=== PATIENT | male | born 1950 | race Caucasian/White ===

== ENCOUNTER 2024-02-07 10:09 | Emergency (ER) | payer OTHER, SELFPAY ==
[2024-02-07 10:15] VITALS: BP 122/102
--- NOTE | 2024-02-07 12:25 | ED.GENMED ---
History of Present Illness
General
Chief Complaint: Cold/Flu/URI Symptoms
Source: patient
Exam Limitations: none
Time Seen by Provider: 02/07/24 12:07
Nursing documentation reviewed up to this point in time: agreed with
History of Present Illness
History of Present Illness:
Patient is a 73-year-old male who presents to the ER with cough for the past 5 to 6 days however cough has worsened over the past 2 days. He has had chills and subjective fevers however has not taken his temperature. is not sick. He denies
any nausea vomiting. He denies shortness of breath.
Past History
Past History
ED Past Medical History: HTN and Other (migraines)
Social History
Living: with family
Review of Systems
Review of Systems
Allergies reviewed?: Yes
Other source history: family
All Other Systems: ROS reviewed and negative except as documented in HPI and ROS
Constitutional: Reports fever (Subjective fevers) and chills
EENT: Reports no symptoms
Respiratory: Reports cough; Denies trouble breathing
Cardiac: Reports no symptoms
ABD/GI: Reports no symptoms
: Reports no symptoms
Musculoskeletal: Reports no symptoms
Skin: Reports no symptoms
Neurological: Reports no symptoms
Psychiatric: Reports no symptoms
Phy Exam
General Physical Exam
General Presentation: no apparent distress
General age: appears stated age
General Skin: warm and dry
General Habitus: normal
General Mental: alert
General Hydration: appears well hydrated
Cardiovascular Exam
Cardiovascular Exam: regular rate/rhythm, no murmur and normal peripheral pulses
Pulmonary Exam
Pulmonary Exam: lungs clear and no respiratory distress
Neurological Exam
Neurological Exam: alert and oriented x3
Musculoskeletal Exam
Musculoskeletal Exam: full ROM
Skin Exam
Skin Exam: normal color and warm/dry
Psychiatric Exam
Psychiatric Exam: normal mood/affect
Sepsis
Sepsis Screening
Sepsis Assessment: Sepsis Ruled Out
Sepsis Screen
Sepsis Screen: Sepsis Ruled Out
Date: 02/07/24
Time: 15:03
Course
Orders/Labs/Results
Orders:
Orders
02/07/24 12:25
Chest [CR Chest - 2 Views ] Urgent
Comment:
Reason For Exam: cough fever
02/07/24 12:30
Cardiac Monitoring- Treatment ONCE
IV Insert/Care/Rem.- Treatment PRN
02/07/24 13:28
Complete Blood Count/With Diff Urgent
Comprehensive Metabolic Panel Urgent
Influenza A+B Rapid Molecular Urgent
EARL Source: Nasal Swab
Specimen Description:
02/07/24 13:35
Ketorolac [Toradol] 15 mg IV NOW STA
02/07/24 13:36
0.9% Sodium Chloride 1000 ml [Nss] 1,000 ml IV BOLUS
Abnormal Lab Results
02/07/24
13:28
RBC 4.66 L 10^6/uL
(4.70-6.10)
MCH 31.1 H pg
(27.0-31.0)
Absolute Lymphs (auto) 0.8 L 10^3/uL
(1.2-3.4)
Neutrophils % 79.1 H %
(42.2-75.2)
Lymphocytes % 10.9 L %
(20.5-51.1)
Sodium 134 L mmol/L
(135-145)
Chloride 97 L mmol/L
(98-107)
Glucose 110 H mg/dl
(70-99)
02/07/24 13:28
02/07/24 13:28
Vital Signs
Initial and Last Documented VS:
Initial Vital Signs
Temp Pulse Resp BP Pulse Ox
99.9 F 100 22 122/102 97
02/07/24 10:15 02/07/24 10:15 02/07/24 10:15 02/07/24 10:15 02/07/24 10:15
Last Documented Vital Signs
Temp Pulse Resp BP Pulse Ox
100.2 F 91 26 158/95 93
02/07/24 14:03 02/07/24 14:15 02/07/24 14:03 02/07/24 14:03 02/07/24 14:15
MDM/Problems Addressed
Differential Diagnosis Includes:
Not limited to viral syndrome, influenza, COVID, bronchitis, pneumonia
MDM/Problems Addressed:
Patient is positive for flu A symptoms have been occurring for the past 5-6 days. Patient is in no acute distress and nontoxic nonhypoxic lungs are clear and her difficulty breathing normal white count , nml electrolytes. Patient received fluids
and Toradol here feeling better stable for discharge home discussed supportive care including fluids and alternating Motrin and Tylenol.
*Radiology
Radiology exam reviewed: radiology read reviewed
*Pulse Oximetry
Patient hypoxic: no
*Critical Care Note
Total Time (30-74mins, 75-104mins- exclusive of procedures): Not Applicable
ED Attending Note
-
Portions of this chart may have been created with voice recognition software.� Occasional wrong word or��sound alike� substitutions may have occurred due to the inherent limitations of voice recognition software.
Discharge Plan
Departure
Patient Disposition: Home (Routine Discharge)
Date of Disposition: 02/07/24
Time of Disposition: 14:58
Patient with high blood pressure during this ER visit?: Yes
Condition: Fair
Covid-19: Not Applicable
Discharge Problem:
Influenza A
Instructions: Fever, Adult (DC), Flu in adults - Discharge instructions, BLOOD PRESSURE
Referrals:
Roger Huerta MD [Family Provider] -
Activity Restrictions/Additional Instructions:
as discussed stay well-hydrated. You may alternate between Motrin/ Tylenol for fever chills body aches. Follow-up with your family doctor as discussed in the next several days as needed return if any worsening of symptoms including shortness of
breath worsening fevers or any further concerns.
Interventions
Interventions:
*Risk Screen - Suicide Last Done: 02/07/24 10:15
*General Assessment Last Done: 02/07/24 10:15
*Neglect/Abuse Screening Last Done: 02/07/24 10:15
*ED COVID-19 Vaccine History Last Done: 02/07/24 11:24
ED- Pulmonary Assessment Last Done: 02/07/24 11:24
Discharge Date and Time
Print Language: TANZANIAN
[2024-02-07 13:26] VITALS: BP 156/87
[2024-02-07 13:45] LABS: % Basophils 0.6 % (0-2); % Eosinophils 0.1 % (0-6); % Immature Granulocytes 0.3 % (0-0.5); % Lymphocytes 10.9 % (20.5-51.1); % Neutrophils 79.1 % (42.2-75.2); Absolute Lymphocytes 0.8 10^3/uL (1.2-3.4); Absolute Monocytes 0.6 10^3/uL (0.1-0.6); Absolute Neutrophils 5.4 10^3/uL (1.4-6.5); Hemoglobin 14.5 g/dL (13.0-18.0); Mean Corp Hgb Conc. 33.7 g/dL (33.0-37.0); Mean Corpuscular Hgb 31.1 pg (27.0-31.0); Mean Corpuscular Volume 92.3 fL (80.0-94.0); Mean Platelet Volume 10.4 fL (7.4-10.4); Nucleated Red Blood Cells % 0 % (-); Platelet Count 144 10^3/uL (130-400); Red Blood Cell Count 4.66 10^6/uL (4.70-6.10); White Blood Cell Count 6.9 10^3/uL (4.8-10.8)
[2024-02-07 13:56] LABS: ALT (SGPT) 22 U/L (0-50); AST (SGOT) 24 U/L (17-59); Albumin 4.3 g/dl (3.5-5.0); Alkaline Phosphatase 73 U/L (38-126); Blood Urea Nitrogen 13 mg/dl (9-20); Calcium 8.9 mg/dl (8.4-10.2); Carbon Dioxide 27 mmol/L (22-30); Chloride 97 mmol/L (98-107); Glucose 110 mg/dl (70-99); Potassium 4.4 mmol/L (3.5-5.1); Sodium 134 mmol/L (135-145); Total Bilirubin 0.3 mg/dl (0.2-1.3); eGFR > 60.00
[2024-02-07 14:00] VITALS: BP 158/95
[2024-02-07 14:03] VITALS: BP 158/95
[2024-02-07] MEDS: TORADOL 15 MG IV (14:04)
[2024-02-07] MEDS: NSS 1000 IV (14:05)
== END 2024-02-07 15:08 | disposition home or self-care (01) ==
LOC: EMR 10:09
PROVIDERS: Nurse Practitioner; EMERGENCY PHYSICIAN Emergency Medicine; FAMILY PHYSICIAN Internal Medicine
DX: J10.1 Influenza due to other identified influenza virus with other respiratory manifestations (principal); I10 Essential (primary) hypertension; G43.909 Migraine, unspecified, not intractable, without status migrainosus
CPT/HCPCS: 99284; 96374; 96361; 71046; 80053; 85025; 87502

== ENCOUNTER 2024-02-20 08:58 | Emergency (ER) | payer OTHER, SELFPAY ==
[2024-02-20 09:03] VITALS: BP 171/91
--- NOTE | 2024-02-20 10:20 | ED.GENMED ---
History of Present Illness
General
Chief Complaint: Nose Bleed
Time Seen by Provider: 02/20/24 10:20
History of Present Illness
History of Present Illness:
TIME OF INITIAL ENCOUNTER: 10:25 AM this is an acute problem
HPI: The patient presents due to intermittent recurring nosebleeds. His nosebleed started yesterday and went to see his primary care doctor but he was told that the primary care doctor could not do anything for it. His nosebleed recurred today.
He has not seen ENT.
EXAM:
GENERAL: Well appearing in no distress
HEENT: There was dried blood left greater than right anterior nasal septae
NEUROLOGIC: Excellent strength all extremities, no obvious coordination deficits
PSYCHIATRIC: Appropriate mental status, normal insight and judgement
EXTREMITIES: Nontender, no edema, moves all extremities equally
SKIN: No rash, no lesions
NUMBER AND COMPLEXITY OF PROBLEMS ADDRESSED AT THE ENCOUNTER
� Chronic conditions affecting care: High blood pressure
� Acute Exacerbation and/or Progression of Chronic Illness: This is an acute problem
� Differential Diagnosis includes: Anterior nosebleed, posterior nosebleed, nosebleed due to dry air, hypertensive nosebleed
AMOUNT AND/OR COMPLEXITY OF DATA TO BE REVIEWED AND ANALYZED
� I performed an independent evaluation of and my interpretation is:
EKG:
CT:
X-rays:
Laboratory Studies:
Other:
� Review of other/old records: I reviewed records, the patient was seen here 2 weeks ago diagnosed with influenza.
� Clinical information was obtained by an independent historian: None needed
� Prescriptions/Medications Considered but not given:
� Further testing considered but not performed:
RISK OF COMPLICATIONS AND/OR MORBIDITY OR MORTALITY OF PATIENT MANAGEMENT
� Social determinants of health affecting care: Lives at home, is traveling to [place] later today for a tomorrow
� Discussion with other providers:
� Escalation of care including admission/observation vs risk of discharge considered: No significant bleeding throughout the stay here
ANY OTHER UPDATES:
The patient presents due to recurrent intermittent nosebleeds. I initially placed David-Synephrine soaked cotton as well as pressure. I then cauterized using a silver nitrate stick. I then used TXA soaked Surgicel. There has been no significant
bleeding throughout stay in the emergency department. He is known to Dr. Sanches and will follow-up with him.
Past History
Past History
ED Past Medical History: HTN and Other (migraines)
Social History
Living: with family
Phy Exam
Physical Exam
Physical Exam:
See HPI
Course
Orders/Labs/Results
Orders:
Orders
02/20/24 10:27
Phenylephrine 0.5% Regular Spr [Dvaid-Synephrine 0.5% Nasal [place]] 1 spray .ROUTE .STK-MED ONE
Tranexamic Acid 1,000 mg .ROUTE .STK-MED ONE
02/20/24 10:56
Lisinopril [Zestril] 10 mg PO NOW STA
02/20/24 11:51
Lisinopril [Zestril] 10 mg .ROUTE .STK-MED ONE
02/20/24 11:54
Cephalexin Monohydrate [Keflex] 500 mg PO NOW STA
Vital Signs
Initial and Last Documented VS:
Initial Vital Signs
Temp Pulse Resp BP Pulse Ox
36.6 C 68 16 171/91 98
02/20/24 09:03 02/20/24 09:03 02/20/24 09:03 02/20/24 09:03 02/20/24 09:03
Last Documented Vital Signs
Temp Pulse Resp BP Pulse Ox
36.6 C 68 16 171/100 98
02/20/24 09:03 02/20/24 09:03 02/20/24 09:03 02/20/24 11:53 02/20/24 09:03
Procedures
Nosebleed
Drug treatment: Neosynephrine and Tranexamic Acid
Treatment: local pressure applied, Silver nitrate cautery and Surgical (Surgicel packing placed)
*Critical Care Note
Total Time (30-74mins, 75-104mins- exclusive of procedures): Not Applicable
ED Attending Note
-
Portions of this chart may have been created with voice recognition software.� Occasional wrong word or��sound alike� substitutions may have occurred due to the inherent limitations of voice recognition software.
Discharge Plan
Departure
Patient Disposition: Home (Routine Discharge)
Date of Disposition: 02/20/24
Time of Disposition: 11:55
Patient with high blood pressure during this ER visit?: Yes
Discharge Problem:
Epistaxis
Instructions: Nosebleeds (DC), BLOOD PRESSURE
Referrals:
Leonardo Sanches MD [Active] - Follow up in 2-3 days
Roger Huerta MD [Family Provider] -
Activity Restrictions/Additional Instructions:
I initially placed David-Synephrine soaked cotton as well as pressure. I then cauterized using a silver nitrate stick. I then used TXA soaked Surgicel. Leave the Surgicel packing in and follow-up Dr. Sanches. Use the clamp again if it starts to
rebleed. Return here if worse or other concerns. Be sure to continue your blood pressure medication.
Interventions
Interventions:
*Risk Screen - Suicide Last Done: 02/20/24 09:03
*General Assessment Last Done: 02/20/24 09:03
*Neglect/Abuse Screening Last Done: 02/20/24 09:03
Discharge Date and Time
Print Language: ESTONIAN
[2024-02-20] MEDS: ZESTRIL 10 MG PO (11:53)
[2024-02-20] MEDS: KEFLEX 500 MG PO (12:00)
== END 2024-02-20 12:07 | disposition home or self-care (01) ==
LOC: EMR 08:58
PROVIDERS: EMERGENCY PHYSICIAN Emergency Medicine; FAMILY PHYSICIAN Internal Medicine
DX: R04.0 Epistaxis (principal); I10 Essential (primary) hypertension; G43.909 Migraine, unspecified, not intractable, without status migrainosus
CPT/HCPCS: 99283; 30901

== ENCOUNTER 2024-05-11 21:43 | Emergency (ER) | payer OTHER, SELFPAY ==
[2024-05-11 21:47] VITALS: BP 144/108
[2024-05-11 23:01] VITALS: BMI 29.6
[2024-05-11 23:04] VITALS: BP 151/100
--- NOTE | 2024-05-11 23:46 | ED.GENMED ---
History of Present Illness
General
Chief Complaint: Nose Bleed
Source: patient
Exam Limitations: none
Time Seen by Provider: 05/11/24 23:37
History of Present Illness
History of Present Illness:
See MDM
Past History
Past History
ED Past Medical History: HTN and Other (migraines)
Social History
Living: with family
Phy Exam
Physical Exam
Physical Exam:
See MDM
Course
Vital Signs
Initial and Last Documented VS:
Initial Vital Signs
Pulse Resp BP Pulse Ox
74 16 144/108 98
05/11/24 21:47 05/11/24 21:47 05/11/24 21:47 05/11/24 21:47
Last Documented Vital Signs
Pulse Resp BP Pulse Ox
74 16 140/83 94
05/11/24 21:47 05/11/24 21:47 05/12/24 00:00 05/12/24 00:00
Procedures
Nosebleed
Drug treatment: none
Treatment: Silver nitrate cautery
Post treatment bleeding: none- good control
MDM/Problems Addressed
Differential Diagnosis Includes:
HPI and MDM Narrative:
73-year-old male presenting with left sided nosebleeding. This occurred earlier today soon after blowing his nose. He had an issue like this few months ago requiring cauterization. He had follow-up and was told everything was okay. On exam, he
does have evidence of anterior nosebleed. He has bleeding in his left nare. After blowing the clot, the area was exposed. Muricel packing was placed. Will reassess to see if he has a cauterization candidate
Physical exam
General: Well appearing and non-toxic
HEENT: protecting airway. Bleeding to left nasal septum
Neck: appears supple
CV: No evidence of cyanosis
Resp: No accessory muscle use
Abd: Non-distended
Extremities: No deformities
Neuro: alert
Psych: Normal affect
Skin: Intact
Problems Addressed including Acute and Chronic Conditions affecting care:
1. Left anterior epistaxis
Acuity: acute
Prognosis: stable
Details: Packing was placed. Will reassess once bleeding has resolved for cauterization
Updates
After the packing was removed, it exposed the area of bleeding to his left nasal septum. Silver nitrate was applied which patient tolerated well. No active bleeding noted afterwards
12:30 AM on reassessment, bleeding still resolved and patient is comfortable going home
Differential Diagnosis (but not limited to): Epistaxis, recurrent nosebleeding, nasal trauma
Testing considered: Basic blood work
Drug therapy (if applicable): OTC meds, please see d/c instruction regarding Rx drugs
Amount and/or Complexity of Data Reviewed
Clinical info obtained from: Patient
External data reviewed: N/A
Labs I independently reviewed (but not limited to): N/A
Radiology: N/A
Pulse Ox: not hypoxic
EKG independently reviewed: N/A
[employer]er: N/A
Critical Care: N/A
Risk of Complication:
Social Determinants of health: Good social support
Discussed with other providers: N/A
Escalation of Care includes Admit/Obs: After being observed in the Emergency Department, pt stable for discharge.
Occasional wrong word or 'sound a like' substitutions may have occurred due to the inherent limitations of voice recognition software. Read the chart carefully and recognize, using context, where substitutions have occurred.
*Critical Care Note
Total Time (30-74mins, 75-104mins- exclusive of procedures): Not Applicable
ED Attending Note
-
Portions of this chart may have been created with voice recognition software.� Occasional wrong word or��sound alike� substitutions may have occurred due to the inherent limitations of voice recognition software.
Discharge Plan
Departure
Patient Disposition: Home (Routine Discharge)
Date of Disposition: 05/12/24
Time of Disposition: 00:34
Patient with high blood pressure during this ER visit?: Yes
Discharge Problem:
Anterior epistaxis
Instructions: Nosebleeds (DC)
Referrals:
Roger Huerta MD [Family Provider] -
Activity Restrictions/Additional Instructions:
Please return for any worsening symptoms.
You may return at any time if you have further concerns.
Please follow up with your doctor at the first available appointment, preferably this week.
Please revisit the ENT office.
Thank you for choosing [facility].
Interventions
Interventions:
*Risk Screen - Suicide Last Done: 05/11/24 21:47
*General Assessment Last Done: 05/11/24 23:01
*Neglect/Abuse Screening Last Done: 05/11/24 21:47
*ED- Fall Risk Assessment Last Done: 05/11/24 23:01
*ED COVID-19 Vaccine History Last Done: 05/11/24 23:01
ED-EENT Assessment Last Done: 05/11/24 23:01
Discharge Date and Time
Print Language: AMHARIC
[2024-05-12] VITALS: BP 140/83
== END 2024-05-12 00:45 | disposition home or self-care (01) ==
LOC: EMR 21:43
PROVIDERS: EMERGENCY PHYSICIAN Student in an Organized Health Care Education/Training Program; FAMILY PHYSICIAN Internal Medicine
DX: R04.0 Epistaxis (principal); I10 Essential (primary) hypertension
CPT/HCPCS: 99282; 30901

== ENCOUNTER 2024-05-14 21:05 | Emergency (ER) | payer OTHER, SELFPAY ==
[2024-05-14 21:07] VITALS: BP 122/78
[2024-05-14 22:01] VITALS: BP 121/73
[2024-05-14 22:02] VITALS: BMI 27.7
[2024-05-14 23:00] VITALS: BP 125/79
--- NOTE | 2024-05-14 23:42 | ED.GENMED ---
History of Present Illness
General
Chief Complaint: Nose Bleed
Source: patient and spouse
Exam Limitations: none
Time Seen by Provider: 05/14/24 23:25
Nursing documentation reviewed up to this point in time: agreed with
History of Present Illness
History of Present Illness:
73-year-old male presents to the emergency department with epistaxis in the left nostril. Patient started his nosebleed on Monday. Was seen in the emergency department here and was cauterized. Today he was elsewhere and his bleed started again
so he had a Rhino Rocket placed. Was told in the emergency department that they did not cauterize. He came in [facility] to be cauterized. States that bleeding started again. Patient deferred an appointment with ENT because they did not want to see
a PA. They stated that the earliest appointment with a doctor was in June.
Past History
Past History
ED Past Medical History: HTN and Other (migraines)
Social History
Living: with family
Phy Exam
General Physical Exam
General Presentation: well appearing and mild distress
General age: appears stated age
General Skin: warm and dry
General Habitus: normal
General Mental: alert and usual mental status
General Hydration: appears well hydrated
ENT Exam
ENT Exam: other (Epistaxis left nare)
Cardiovascular Exam
Cardiovascular Exam: regular rate/rhythm
Pulmonary Exam
Pulmonary Exam: lungs clear, no respiratory distress and no cough
Neurological Exam
Neurological Exam: alert and oriented x3
Musculoskeletal Exam
Musculoskeletal Exam: full ROM, no edema and neuro vasc intact
Skin Exam
Skin Exam: normal color and warm/dry
Psychiatric Exam
Psychiatric Exam: normal mood/affect
Course
Orders/Labs/Results
Orders:
Orders
05/14/24 23:30
Phenylephrine 0.5% Regular Spr [David-Synephrine 0.5% Nasal [place]] 1 spray .ROUTE .STK-MED ONE
Vital Signs
Initial and Last Documented VS:
Initial Vital Signs
Temp Pulse Resp BP Pulse Ox
97.6 F 68 17 122/78 97
05/14/24 21:07 05/14/24 21:07 05/14/24 21:07 05/14/24 21:07 05/14/24 21:07
Last Documented Vital Signs
Temp Pulse Resp BP Pulse Ox
97.6 F 63 17 125/79 98
05/14/24 22:06 05/14/24 22:06 05/14/24 21:07 05/14/24 23:00 05/14/24 22:06
Procedures
Nosebleed
Drug treatment: Lidocaine
Treatment: local pressure applied, Silver nitrate cautery and Merocel packing
Post treatment bleeding: none- good control
*Critical Care Note
Total Time (30-74mins, 75-104mins- exclusive of procedures): Not Applicable
Update Note
Update Note:
was upset of the prolonged wait time. I explained to her that the ER was very busy and the ER staff were attending to very sick patient.
Bleeding has stopped. Patient still anxious that it may start again. I did provide a Merisel sponge. Patient was already started on antibiotics.
ED Attending Note
-
Portions of this chart may have been created with voice recognition software.� Occasional wrong word or��sound alike� substitutions may have occurred due to the inherent limitations of voice recognition software.
Discharge Plan
Departure
Patient Disposition: Home (Routine Discharge)
Date of Disposition: 05/15/24
Time of Disposition: 00:53
Patient with high blood pressure during this ER visit?: Yes
Condition: Good
Discharge Problem:
Acute anterior epistaxis
Instructions: Nosebleeds (DC), BLOOD PRESSURE
Referrals:
Lorne Wynn MD [Active] - Next open appointment
Roger Huerta MD [Family Provider] -
Activity Restrictions/Additional Instructions:
It was a pleasure meeting you and taking part in your care. We hope for your continued healing and wellness.
Please read discharge instructions in their entirety. However, they are for general education and may not describe your exact diagnosis at discharge. Information on your ER visit and medical conditions were discussed with you along with appropriate
follow up information...
If indicated, please take your medications as instructed and indicated on discharge paperwork.
Please schedule a follow up appointment as directed. Call to schedule an appointment
Please return to the emergency department with ANY change in, persisting, or worsening of symptoms. If any of your symptoms do not improve, or persist, or become more severe within 6-12 hours, please return to the emergency department for further
care.
Please return to the emergency department if you develop a headache, neck pain/stiffness, fever greater than 100.4F, chest pain, shortness of breath, persistent nausea, vomiting, slurred speech, difficulty walking, numbness/tingling, weakness, signs
of infection or any other symptoms that are worrisome to you.
If you have any questions or concerns please do not hesitate to call the Hospital at or E-mail me directly at [email or web address]
Interventions
Interventions:
*Risk Screen - Suicide Last Done: 05/14/24 22:02
*General Assessment Last Done: 05/14/24 22:02
*Neglect/Abuse Screening Last Done: 05/14/24 22:02
*ED- Fall Risk Assessment Last Done: 05/14/24 22:02
*ED COVID-19 Vaccine History Last Done: 05/14/24 22:02
*Nursing Disposition Last Done: 05/15/24 00:57
ED-EENT Assessment Last Done: 05/14/24 22:02
Discharge Date and Time
Discharge Date/Time: 05/15/24 00:58
Print Language: DJIBOUTIAN
== END 2024-05-15 00:58 | disposition home or self-care (01) ==
LOC: EMR 21:05
PROVIDERS: EMERGENCY PHYSICIAN Student in an Organized Health Care Education/Training Program; FAMILY PHYSICIAN Internal Medicine
DX: R04.0 Epistaxis (principal); I10 Essential (primary) hypertension
CPT/HCPCS: 99282; 30901

== ENCOUNTER → 2024-08-19 11:49 | Outpatient (REF) | payer OTHER, SELFPAY | LOC: PAVMRI 11:49 | PROVIDERS: ATTENDING PHYSICIAN Neuromusculoskeletal Medicine & OMM; FAMILY PHYSICIAN Internal Medicine | DX: R51.9 Headache, unspecified (principal) | CPT/HCPCS: 70553; A9575 ==

== ENCOUNTER 2024-09-02 04:38 | Emergency (ER) | payer OTHER, SELFPAY ==
[2024-09-02] VITALS (10 sets, daily range): BP systolic 52–165; BP diastolic 41–100; BMI 29.0
--- NOTE | 2024-09-02 05:28 | ED.GENMED ---
History of Present Illness
<Carli Ramirez DO - Last Filed: 09/02/24 07:38>
General
Chief Complaint: Insect Sting
Source: patient
Exam Limitations: none
Time Seen by Provider: 09/02/24 05:18
Nursing documentation reviewed up to this point in time: agreed with
History of Present Illness
History of Present Illness:
This is a 73-year-old gentleman with history of hypertension presents with complaints of generalized itching, hives that began last night. He states he suffered multiple bee stings yesterday afternoon primarily to bilateral arms as well as one
sting to his chest wall. He developed generalized itching and hives yesterday evening. He took a dose of Benadryl around 8 PM last night with minimal but only temporary improvement.
He denies shortness of breath nor cough, no chest nor abdominal pain, no nausea nor diarrhea. No history of similar allergic reactions to bee stings in the past. He has not had a fever nor chills.
Past History
<Carli Ramirez DO - Last Filed: 09/02/24 07:38>
Past History
ED Past Medical History: HTN and Other (migraines)
ED Past Surgical History: Orthopedic and Tonsilectomy
Social History
Tobacco: Smoker
Personal:
Living: with family
Employment: Employed (Self-employed)
Family History
Family History: Hypertension
Phy Exam
<Carli Ramirez DO - Last Filed: 09/02/24 07:38>
Physical Exam
Physical Exam:
GENERAL: 73-year-old gentleman appears his stated age, awake and alert, pleasant, appears in no acute distress. Intermittently scratching in his forearms.
EYE: pupils equal and reactive. anicteric
NECK: Supple, nontender, no meningismus, no significant adenopathy.
ENT: posterior pharynx is clear, oral mucosa is moist. TM clear b/l, nares patent. No angioedema.
CARDIAC: Regular rate and rhythm. no murmur.
LUNGS: Clear breath sounds bilaterally, no acute respiratory distress, no wheezes/rales/rhonchi
ABDOMEN: Soft, nondistended, without focal tenderness, normoactive BS.
NEUROLOGICAL: Alert and oriented x3, no focal neuro deficits. Gait is huerta and steady.
SKIN: Warm and dry, normal color, skin intact. Urticaria bilateral arms with mild global soft tissue swelling bilateral dorsal hands left greater than right. Urticaria bilateral anterior medial thighs.
MUSCULOSKELETAL: No C/C/E. peripheral pulses are full and equal b/l. No palpable tenderness.
PSYCH: Normal and appropriate interaction.
Course
<Carli Ramirez, DO - Last Filed: 09/02/24 07:38>
Orders/Labs/Results
Orders:
Orders
09/02/24 05:27
Cardiac Monitoring- Treatment ONCE
EPINEPHrine PF [Adrenalin] 0.3 mg IM NOW STA
Famotidine [Pepcid] 20 mg PO NOW STA
Prednisone [Deltasone] 50 mg PO NOW STA
09/02/24 06:45
0.9% Sodium Chloride 500 ml [Nss] 500 ml IV BOLUS
Dexamethasone Sod Phosphate [Decadron] 10 mg IV NOW STA
Diphenhydramine [Benadryl] 50 mg IV NOW STA
09/02/24 07:28
0.9% Sodium Chloride 1000 ml [Nss] 1,000 ml IV BOLUS
Vital Signs
Initial and Last Documented VS:
Initial Vital Signs
Temp Pulse Resp BP Pulse Ox
97.8 F 81 20 165/100 97
09/02/24 04:41 09/02/24 04:41 09/02/24 04:41 09/02/24 04:41 09/02/24 04:41
Last Documented Vital Signs
Temp Pulse Resp BP Pulse Ox
97.8 F 65 16 134/81 99
09/02/24 04:41 09/02/24 08:32 09/02/24 08:32 09/02/24 08:32 09/02/24 08:32
<Nasim Mahajan MD - Last Filed: 09/02/24 13:50>
Orders/Labs/Results
Orders:
Orders
09/02/24 05:27
Cardiac Monitoring- Treatment ONCE
EPINEPHrine PF [Adrenalin] 0.3 mg IM NOW STA
Famotidine [Pepcid] 20 mg PO NOW STA
Prednisone [Deltasone] 50 mg PO NOW STA
09/02/24 06:45
0.9% Sodium Chloride 500 ml [Nss] 500 ml IV BOLUS
Dexamethasone Sod Phosphate [Decadron] 10 mg IV NOW STA
Diphenhydramine [Benadryl] 50 mg IV NOW STA
09/02/24 07:28
0.9% Sodium Chloride 1000 ml [Nss] 1,000 ml IV BOLUS
Vital Signs
Initial and Last Documented VS:
Initial Vital Signs
Temp Pulse Resp BP Pulse Ox
97.8 F 81 20 165/100 97
09/02/24 04:41 09/02/24 04:41 09/02/24 04:41 09/02/24 04:41 09/02/24 04:41
Last Documented Vital Signs
Temp Pulse Resp BP Pulse Ox
97.8 F 65 16 134/81 99
09/02/24 04:41 09/02/24 08:32 09/02/24 08:32 09/02/24 08:32 09/02/24 08:32
<Carli Ramirez DO - Last Filed: 09/02/24 07:38>
MDM/Problems Addressed
Differential Diagnosis Includes:
Patient presented to acute allergic reaction after suffering a number of bee stings yesterday.
Urticarial rash noted bilateral extremities. No evidence of anaphylaxis nor anaphylactoid reaction.
Will treat with subcu epi and initiate a course of prednisone.
Patient has driven himself to the ED thus for now we will hold off on Benadryl.
Chronic conditions affecting care: HTN
<Carli Ramirez DO - Last Filed: 09/02/24 07:38>
*Pulse Oximetry
SaO2: 97
Oxygen Mode of Delivery: Room air
Patient hypoxic: no
*Aluminum Shingle Roofer Interpretation
Rate: normal
Interpretation: normal
Rhythm: sinus
<Nasim Mahajan MD - Last Filed: 09/02/24 13:50>
*Critical Care Note
Total Time (30-74mins, 75-104mins- exclusive of procedures): Not Applicable
<Carli Ramirez DO - Last Filed: 09/02/24 07:38>
Update Note
Update Note:
06:45
Patient continues with moderate generalized erythema, and itching. Urticaria mildly improved.
He remains hemodynamically stable. Continues to have no shortness of breath nor wheezing.
Will initiate IV fluids, give an IV dose of Benadryl as well as an IV dose of Decadron and continue to observe.
07:20
After IV initiated, Patient suddenly became hypotensive, bradycardic, diaphoretic. Appears to have vasovagal episode. Promptly improved with repositioning to Trendelenburg, IV fluids infusing.
IV Decadron, Benadryl infusing now.
Urticaria and erythema are slowly improving.
Will continue to observe.
<Nasim Mahajan MD - Last Filed: 09/02/24 13:50>
Update Note
Update Note:
06:45
Patient continues with moderate generalized erythema, and itching. Urticaria mildly improved.
He remains hemodynamically stable. Continues to have no shortness of breath nor wheezing.
Will initiate IV fluids, give an IV dose of Benadryl as well as an IV dose of Decadron and continue to observe.
07:20
After IV initiated, Patient suddenly became hypotensive, bradycardic, diaphoretic. Appears to have vasovagal episode. Promptly improved with repositioning to Trendelenburg, IV fluids infusing.
IV Decadron, Benadryl infusing now.
Urticaria and erythema are slowly improving.
Will continue to observe.
0840... Patient doing well and feels well. No general hives. Some swelling to the arms at the bite aly areas and some swelling to the forearms likely secondary to same. No airway issues stable vital signs. Patient feels well discharged to
follow-up
ED Attending Note
<Carli Ramirez DO - Last Filed: 09/02/24 07:38>
-
Portions of this chart may have been created with voice recognition software.� Occasional wrong word or��sound alike� substitutions may have occurred due to the inherent limitations of voice recognition software.
Discharge Plan
Departure
Patient Disposition: Home (Routine Discharge)
Date of Disposition: 09/02/24
Time of Disposition: 08:40
Patient with high blood pressure during this ER visit?: Yes
Discharge Problem:
Allergic reaction to bee sting
Instructions: Insect Bites and Stings (DC), How to use an autoinjector
Prescriptions:
New
prednisone 10 mg Tablet
See Rx Instructions .ROUTE .COMPLEX Qty: 30 0RF
Rx Instructions:
Take By Mouth:
40 mg daily x3 days, 30 mg daily x3 days,
20 mg daily x3 days, 10 mg daily x3 days.
famotidine [Pepcid] 40 mg tablet
40 mg PO DAILY Qty: 10 0RF
epinephrine [EpiPen 2-Live] 0.3 mg/0.3 mL auto-injector
0.3 mg IM Q5-15M PRN (Reason: allergic reaction) Qty: 2 0RF
Referrals:
Juan Crawford MD [Family Provider, Infectious Diseases]
Roger Huerta MD [Active, Internal Medicine] - Call in 1-3 days for appt
Activity Restrictions/Additional Instructions:
Start Zyrtec or Claritin 10 mg once daily. Along with this if hives, itching recur you can take [id number] Benadryl 50 mg (#2 25 mg tablets) 4 times daily as needed for itch, hives.
You have been prescribed prednisone taper to take over the next 12 days as well as a 10-day course of once daily famotidine.
You have also been prescribed an EpiPen to have on hand if acute allergic reaction occurs in the future with bee stings.
Interventions
Interventions:
*Risk Screen - Suicide Last Done: 09/02/24 04:41
*General Assessment Last Done: 09/02/24 04:41
*Neglect/Abuse Screening Last Done: 09/02/24 04:41
*ED- Fall Risk Assessment Last Done: 09/02/24 04:41
*ED COVID-19 Vaccine History Last Done: 09/02/24 04:41
*Nursing Disposition Last Done: 09/02/24 09:10
ED-Skin Assessment Last Done: 09/02/24 07:22
ED- Pulmonary Assessment Last Done: 09/02/24 07:22
Discharge Date and Time
Discharge Date/Time: 09/02/24 09:11
Print Language: GABONESE
[2024-09-02] MEDS: ADRENALIN 0.3 MG IM (05:38)
[2024-09-02] MEDS: DELTASONE 50 MG PO (05:38)
[2024-09-02] MEDS: PEPCID 20 MG PO (05:38)
[2024-09-02] MEDS: BENADRYL 50 MG IV (07:17)
[2024-09-02] MEDS: NSS 500 IV (07:17)
[2024-09-02] MEDS: DECADRON 10 MG IV (07:17)
--- NOTE | 2024-09-02 07:18 | EDRN ---
Assumed care. Pt received in Er 22- fully dressed. laboratory monitor NSR. VS q1 hr. Redness/ hives noted ashlee arms. No facial edema. Lungs clear. IV placed x 2nd attempt- pt became vagal with HR to 40's ( sinus) and hypotension, pallor, diaphoresis.
ER provider in to recheck. IV NSS bolus infusing. placed in trendelenburg. SXS resolved. IV Decadron and Benadryl administered. Pt aware that he will need transportation home. VS monitored q 15 min.
[2024-09-02] MEDS: NSS 1000 IV (07:34)
== END 2024-09-02 09:11 | disposition home or self-care (01) ==
LOC: EMR 04:38
PROVIDERS: EMERGENCY PHYSICIAN Emergency Medicine; FAMILY PHYSICIAN Internal Medicine Infectious Disease
DX: T63.441A Toxic effect of venom of bees, accidental (unintentional), initial encounter (principal); I10 Essential (primary) hypertension; F17.200 Nicotine dependence, unspecified, uncomplicated; Z82.49 Family history of ischemic heart disease and other diseases of the circulatory system
CPT/HCPCS: 99282; 96374; 96375; 96372; 96361